=== PATIENT | female | born 1960 | race Two or more races ===

== ENCOUNTER 2019-02-23 08:39 | Day surgery (SDC) | payer OTHER ==
[2019-02-18 14:20] VITALS: BMI 26.7
[2019-02-23] MEDS ORDERED: PROPOFOL 20 ML ONE ×4 (10:26)
[2019-02-23 11:13] VITALS: TEMP 97.8
[2019-02-23 11:36] VITALS: BP 116/61; PULSE 60
--- NOTE | 2019-02-25 16:10 | PATH ---
Surgical Pathology Report Patient Name: GINA LEE [facility]. Rec. #: [id number] /Age/Gender: 1960 (Age: 58) / F Account: [id number] Location: [facility] Taken: 02/23/2019 Received: 02/23/2019 Reported: 02/25/2019 Physicians: Tomas Cuevas M.D. Specimen(s) Received A: BX SECOND PORTION DUODENUM B: BX GASTRIC ANTRUM Clinical History .Epigastric pain, screening Postoperative diagnosis: Gastritis, normal colon Final Diagnosis A. SECOND PORTION DUODENUM, BIOPSY: DUODENUM MUCOSA WITH NO DIAGNOSTIC ABNORMALITIES. NO HISTOLOGIC EVIDENCE OF CELIAC DISEASE. B. GASTRIC ANTRUM, BIOPSY: GASTRIC MUCOSA WITH MILD CHRONIC GASTRITIS. REACTIVE GASTROPATHY PRESENT. IMMUNOSTAIN FOR H. PYLORI IS NEGATIVE. NEGATIVE FOR INTESTINAL METAPLASIA. Electronically Signed Nathaniel Jacobs M.D. Gross Description A. Received in formalin, labeled "biopsy second portion of duodenum" are 2 campbell, irregular portions of soft tissue measuring 0.3 and 0.4 cm. in greatest dimension. The specimens are submitted in toto in one cassette. B. Received in formalin, labeled "biopsy gastric antrum" are 2 campbell, irregular portions of soft tissue measuring 0.6 and 0.7 cm. in greatest dimension. The specimens are submitted in toto in one cassette. 02/24/201902/24/2019
== END 2019-02-23 12:20 | disposition home or self-care (01) ==
LOC: FASU-ENDO 08:39
PROVIDERS: ATTEND Internal Medicine Gastroenterology
PROC: 0DB68ZX Excision of Stomach, Via Natural or Artificial Opening Endoscopic, Diagnostic (ICD-10-PCS; 2019-02-23)
PROC: 0DJD8ZZ Inspection of Lower Intestinal Tract, Via Natural or Artificial Opening Endoscopic (ICD-10-PCS; principal; 2019-02-23 10:35)
PROC: 0DB98ZX Excision of Duodenum, Via Natural or Artificial Opening Endoscopic, Diagnostic (ICD-10-PCS; 2019-02-23 10:35)
DX: Z12.11 Encounter for screening for malignant neoplasm of colon (principal); R12 Heartburn; K29.50 Unspecified chronic gastritis without bleeding; K31.9 Disease of stomach and duodenum, unspecified
CPT/HCPCS: 43239; G0121; 88305-TC; 88342-TC